=== PATIENT | male | born 2000 | race Hispanic/Latino ===

== ENCOUNTER 2022-03-13 09:51 | Day surgery (SDC) | payer OTHER ==
[~2022-03-13] VITALS: Ht 175.3 cm; Wt 74.8 kg
[~2022-03-13 09:51] MED LIST: ceFAZolin SOD 2 GM in IV 1 EA IV ONE
[2022-03-13] MEDS ORDERED: LR 1,000 ML IV SCH ×2 (10:40→14:30)
[2022-03-13] MEDS ORDERED: MIDAZOLAM INJ 2MG/2ML VIAL (J2250 PER 1MG) As Ordered ONE (11:17)
[2022-03-13] MEDS ORDERED: LIDOCAINE 2% 100MG/5ML SDV (FOR ANES.) As Ordered ONE (11:18)
[2022-03-13] MEDS ORDERED: fentaNYL 100 MCG/2 ML INJECTION As Ordered ONE (11:18)
[2022-03-13] MEDS ORDERED: propofoL 200 MG/20 ML VIAL As Ordered ONE (11:28)
[2022-03-13] MEDS ORDERED: dexameTHASONE 4 MG/ML 1ML VIAL (J1100 PER 1MG) As Ordered ONE (11:29)
[2022-03-13] MEDS ORDERED: ONDANSETRON 4MG 2ML VIAL As Ordered ONE (11:29)
[2022-03-13] MEDS ORDERED: ROPIvacaine 0.5% 30ML INJECTION (J2795 PER 1MG) PN ONE (11:50)
[2022-03-13] MEDS ORDERED: LIDOCAINE 1% SDV 5ML VIAL PN ONE (11:50)
[2022-03-13] MEDS ORDERED: EPINEPHrine INJ 1 MG/ML 1ML AMP PN ONE (11:50)
[2022-03-13] MEDS: fentaNYL 100 MCG/2 ML INJECTION IV PRN ×2 (12:07→12:43)
[2022-03-13] MEDS: MIDAZOLAM INJ 2MG/2ML VIAL (J2250 PER 1MG) IV PRN ×2 (12:07→12:08)
[2022-03-13] MEDS ORDERED: ACETAMINOPHEN 1000MG 100ML IV BTL (OFIRMEV) (J0131 PER 10MG) As Ordered ONE (13:18)
[2022-03-13] MEDS ORDERED: DESFLURANE 240 ML INHALANT As Ordered ONE (13:32)
[2022-03-13] MEDS ORDERED: BUPIVACAINE HCL 0.5% 30ML VIAL As Ordered ONE (14:05)
[2022-03-13] MEDS ORDERED: ONDANSETRON 4MG 2ML VIAL IV PRN (14:30)
[2022-03-13] MEDS ORDERED: oxyCODONE 5MG TAB PO PRN (14:30)
[2022-03-13] MEDS ORDERED: fentaNYL 100 MCG/2 ML INJECTION IV PRN (14:30)
[2022-03-13] MEDS ORDERED: HYDROMORPHONE HCL 0.5 MG/ 0.5 ML SYRINGE (J1170 PER 1) IV PRN (14:30)
[2022-03-13] MEDS ORDERED: PERC5TAB12 PO (14:36)
[2022-03-13 15:10] VITALS: BP 154/89
== END 2022-03-13 15:04 | disposition home or self-care (01) ==
LOC: M SDC 09:51
PROVIDERS: ATTEND Orthopaedic Surgery Hand Surgery
DX: M93.1 Kienbock's disease of adults (principal); M87.031 Idiopathic aseptic necrosis of right radius
CPT/HCPCS: 25390; 64418; 76000; C1713; J0131; J0690; J1100; J2250; J2405; J3010

== ENCOUNTER → 2022-03-19 | Outpatient (CLI) | payer OTHER ==
[~2022-03-19] MED LIST changes: +PERC5TAB12 PO; -ceFAZolin SOD 2 GM in IV 1 EA IV ONE
== END ==
LOC: M SOG 14:28
PROVIDERS: ATTEND Physician Assistant
DX: M93.1 Kienbock's disease of adults (principal); Z48.89 Encounter for other specified surgical aftercare

== ENCOUNTER → 2022-03-27 | Outpatient (CLI) | payer OTHER | LOC: M SOG 11:51 | PROVIDERS: ATTEND Orthopaedic Surgery Hand Surgery | DX: Z47.89 Encounter for other orthopedic aftercare (principal); M93.1 Kienbock's disease of adults ==

== ENCOUNTER → 2022-04-11 | Outpatient (CLI) | payer OTHER | LOC: M SOG 07:53 | PROVIDERS: ATTEND Orthopaedic Surgery Hand Surgery | DX: Z47.89 Encounter for other orthopedic aftercare (principal) ==

== ENCOUNTER → 2022-05-07 | Outpatient (CLI) | payer OTHER | LOC: M SOG 10:32 | PROVIDERS: ATTEND Orthopaedic Surgery Hand Surgery | DX: Z47.89 Encounter for other orthopedic aftercare (principal); Z53.9 Procedure and treatment not carried out, unspecified reason ==